=== PATIENT | female | born 1950 | race Hispanic/Latino ===

== ENCOUNTER → 2018-12-31 | Outpatient (CLI) | payer MEDICARE, OTHER ==
[~2018-12-31] MED LIST: IOPAMIDOL 370 MG/ML 200 ML INFUS..BTL INJ ONE; SODIUM CHLORIDE 0.9% 100 ML 100 ML ONE
[2018-12-31 09:15] LABS: CREATININE, SERUM 5.98 mg/dL (0.57-1.11)
--- NOTE | 2018-12-31 10:30 | Diagnostic Imaging Report ---
ABDOMEN AND PELVIS CT WITH CTA RUNOFF PROTOCOL AFTER ADMINISTRATION OF IV CONTRAST. 3D post-processing of the images was performed, and the post-processed images were used in interpretation. COMPARISON: None. IV CONTRAST: 100mL of Isovue 370 ORAL CONTRAST: None RADIATION DOSE: Total DLP: 950 mGy*cm Dose modulation, iterative reconstruction, and/or weight based adjustment of the mA/kV was utilized to reduce the radiation dose to as low as reasonably achievable. FINDINGS: VESSELS: There are moderate calcified and noncalcified atherosclerotic plaques in the aorta and its major branches. There is no evidence of a flap within the aorta to suggest a dissection. The celiac artery, superior mesenteric artery, and inferior mesenteric artery are patent with mild ostial atherosclerotic plaque without hemodynamically significant stenosis. There is a single right renal artery and a single left renal artery, both of which are patent. Right lower extremity: Mild atherosclerotic calcifications of the right common iliac artery and no significant atherosclerotic calcifications of the external iliac artery, both of which are widely patent. Moderate atherosclerotic calcifications involve the common femoral artery with associated moderate luminal narrowing. Diffuse atherosclerotic calcifications involving the superficial femoral artery with multifocal mild to moderate narrowing. Wide patency of the proximal segments of the popliteal artery. Atherosclerotic plaque and mild narrowing of the distal popliteal artery. Patent three-vessel runoff to the level of the midcalf, after which the posterior tibial artery is not well opacified. Patent anterior tibial and peroneal runoff to the level of the ankle. Left lower extremity: Widely patent external iliac artery. Mild atherosclerotic calcifications involving the common femoral, superficial femoral, and popliteal arteries which remain widely patent. Three-vessel runoff to the distal calf, after which the posterior tibial artery is not well opacified. Anterior tibial and peroneal arterial runoff to the ankle. NON-VASCULAR: LOWER THORAX: Mild lingular subsegmental atelectasis. No focal consolidation. Atherosclerotic calcifications of the coronary arteries. HEPATOBILIARY: No focal hepatic lesions. No biliary ductal dilatation. The gallbladder appears unremarkable. SPLEEN: No splenomegaly. PANCREAS: No focal masses or ductal dilatation. ADRENALS: Nodular thickening and internal calcifications involving both adrenal glands. KIDNEYS/URETERS: Left simple renal cyst. No hydronephrosis or renal calculi. PELVIC ORGANS/BLADDER: Status post hysterectomy. PERITONEUM / RETROPERITONEUM: No free air or fluid. LYMPH NODES: No lymphadenopathy. GI TRACT: No abnormal bowel wall thickening. No bowel obstruction. BONES AND SOFT TISSUES: No acute osseous injury. Multiple old healed pelvic fractures. Postsurgical changes of open reduction internal fixation of the right acetabulum and fixation of the right sacroiliac joint. No suspicious lytic or blastic lesions. Degenerative changes of the visualized spine with grade 1 anterolisthesis at L4-5. IMPRESSION: On the right, moderate narrowing of the common femoral artery, superficial femoral artery and distal popliteal artery as above. Patent three vessel runoff to the mid calf and patent anterior tibial and peroneal runoff to the ankle. On the left, mild athetotic calcifications with no hemodynamically significant stenosis of the iliac, common femoral, superficial femoral, or popliteal arteries. Three-vessel runoff to the distal calf. Anterior tibial and peroneal runoff to the ankle. Moderate atherosclerotic calcifications of the abdominal aorta and major branches as well as of the coronary arteries. Signed by: Rosendo Ortez MD on 12/31/2018 10:27 AM
== END ==
LOC: CT 08:36
PROVIDERS: ATTEND Internal Medicine Cardiovascular Disease
DX: I74.4 Embolism and thrombosis of arteries of extremities, unspecified (principal)
CPT/HCPCS: 36415; 75635; 82565; 84520; Q9967

== ENCOUNTER → 2019-02-04 | Day surgery (SDC) | payer OTHER ==
[2019-02-01 14:39] LABS: BASOPHILS % 0.5 % (0.0-1.0); EOSINOPHILS # (AUTO) 0.2 (0.0-0.4); EOSINOPHILS % 2.1 % (0.0-6.0); HEMATOCRIT 38.2 % (34.2-44.1); HEMOGLOBIN 12.5 g/dL (12.0-16.0); LYMPHOCYTES # (AUTO) 2.4 (1.0-3.2); LYMPHOCYTES % 29.6 % (18.0-39.1); MEAN CORPUSCULAR HEMOGLOBIN 31.9 pg (28-32); MEAN CORPUSCULAR HGB CONC 32.7 g/dL (31-35); MEAN CORPUSCULAR VOLUME 97.4 fL (81-99); MONOCYTES # (AUTO) 0.5 (0.2-0.8); MONOCYTES % 5.6 % (4.4-11.3); NEUTROPHILS % 61.9 % (38.7-80.0); PLATELET COUNT 143 x10e3/uL (140-360); RED BLOOD COUNT 3.92 x10e6/uL (3.6-5.1); RED CELL DISTRIBUTION WIDTH 13.3 % (11.7-14.4)
[~2019-02-04] MED LIST changes: +CARVEDILOL3.125 MG PO; -IOPAMIDOL 370 MG/ML 200 ML INFUS..BTL INJ ONE; +LEVOTHYROXINE75 MCG PO; +LIDOCAINE HCL 2% LOCAL INJ 5 ML SDV VIAL INJ ONE; +NIFEDIPINE ER60 MG PO; +PROPOFOL IV EMULSION 10 MG/ML 50 ML VIAL ONE; +RENAGEL800 MG PO; -SODIUM CHLORIDE 0.9% 100 ML 100 ML ONE; +SODIUM CHLORIDE 0.9% 500ML 500 ML ONE; +TRESIBA FL200 UNIT/1 SQ
--- OUTSIDE RECORDS SUMMARY | 2019-02-04 06:23 | XMS REPORT ---
Author Author [facility] Address Unknown Phone Unavailable Care Team Providers Care Log Sorting Supervisor Name Role Phone JIMMY LAW Unavailable Unavailable Luther LANGFORD Unavailable Unavailable Problems This patient has no known problems. Allergies, Adverse Reactions, Alerts This patient has no known allergies or adverse reactions. Medications This patient has no known medications. Results Test Description Test Time Test Comments Text Results Atomic Results Result Comments CTA ABD/PEL/RUN OFF 2018-12-31 10:07:00 [facility] [address] [address] Patient Name: ESTRELLITA FRANKLIN MR #: [id number] : 1950 Age/Sex: 68/F Req #: [id number] Adm Physician: Ordered by: JIMMY LAW JR, DO Report #: [id number] Location: CT Room/Bed: Procedure: [id number] CT/CTA ABD/PEL/RUN OFF Exam Date: 12/31/18 Exam Time: 09 REPORT STATUS: Signed ABDOMEN AND PELVIS CT WITH CTA RUNOFF PROTOCOL AFTER ADMINISTRATION OF IV CONTRAST. 3D post-processing of the images was performed, and the post-processed images were used in interpretation. COMPARISON: None. IV CONTRAST: 100mL of Isovue 370 ORAL CONTRAST: None RADIATION DOSE: Total DLP: 950 mGy*cm Dose modulation, iterative reconstruction, and/or weight based adjustment of the mA/kV was utilized to reduce the radiation dose to as low as reasonably achievable. FINDINGS: VESSELS: There are moderate calcified and noncalcified atherosclerotic plaques in the aorta and its major branches. There is no evidence of a flap within the aorta to suggest a dissection. The celiac artery, superior mesenteric artery, and inferior mesenteric artery are patent with mild ostial atherosclerotic plaque without hemodynamically significant stenosis. There is a single right renal artery and a single left renal artery, both of which are patent. Right lower extremity: Mild atherosclerotic calcifications of the right common iliac artery and no significant atherosclerotic calcifications of the external iliac artery, both of which are widely patent. Moderate atherosclerotic calcifications involve the common femoral artery with associated moderate luminal narrowing. Diffuse atherosclerotic calcifications involving the superficial femoral artery with multifocal mild to moderate narrowing. Wide patency of the proximal segments of the popliteal artery. Atherosclerotic plaque and mild narrowing of the distal popliteal artery. Patent three-vessel runoff to the level of the midcalf, after which the posterior tibial artery is not well opacified. Patent anterior tibial and peroneal runoff to the level of the ankle. Left lower extremity: Widely patent external iliac artery. Mild atherosclerotic calcifications involving the common femoral, superficial femoral, and popliteal arteries which remain widely patent. Three-vessel runoff to the distal calf, after which the posterior tibial artery is not well opacified. Anterior tibial and peroneal arterial runoff to the ankle. NON-VASCULAR: LOWER THORAX: Mild lingular subsegmental atelectasis. No focal consolidation. Atherosclerotic calcifications of the coronary arteries. HEPATOBILIARY: No focal hepatic lesions. No biliary ductal dilatation. The gallbladder appears unremarkable. SPLEEN: No splenomegaly. PANCREAS: No focal masses or ductal dilatation. ADRENALS: Nodular thickening and internal calcifications involving both adrenal glands. KIDNEYS/URETERS: Left simple renal cyst. No hydronephrosis or renal calculi. PELVIC ORGANS/BLADDER: Status post hysterectomy. PERITONEUM / RETROPERITONEUM: No free air or fluid. LYMPH NODES: No lymphadenopathy. GI TRACT: No abnormal bowel wall thickening. No bowel obstruction. BONES AND SOFT TISSUES: No acute osseous injury. Multiple old healed pelvic fractures. Postsurgical changes of open reduction internal fixation of the right acetabulum and fixation of the right sacroiliac joint. No suspicious lytic or blastic lesions. Degenerative changes of the visualized spine with grade 1 anterolisthesis at L4-5. IMPRESSION: On the right, moderate narrowing of the common femoral artery, superficial femoral artery and distal popliteal artery as above. Patent three vessel runoff to the mid calf and patent anterior tibial and peroneal runoff to the ankle. On the left, mild athetotic calcifications with no hemodynamically significant stenosis of the iliac, common femoral, superficial femoral, or popliteal arteries. Three-vessel runoff to the distal calf. Anterior tibial and peroneal runoff to the ankle. Moderate atherosclerotic calcifications of the abdominal aorta and major branches as well as of the coronary arteries. Signed by: Shahbaz Comer MD on 12/31/2018 10:27 AM Dictated By: SHAHBAZ COMER MD 1027 Transcribed By: FRANCES TURK on 12/31/18 1027 COPY TO: JIMMY LAW JR, DO U/S, ABDOMINAL, COMPLETE 2018-11-25 13:25:00 Reason for Exam:->esrd/kidney transplant evaluation FINAL REPORT TECHNIQUE: Grayscale ultrasound of the abdomen. INDICATION: 68-year-old woman with end-stage renal disease for renal transplant evaluation. COMPARISON: None. FINDINGS: MIDLINE VASCULATURE: The visualized inferior vena cava is patent. Portal vein is patent. The maximum visualized aortic diameter is 1.7 cm. LIVER: The liver is normal in size and echogenicity with smooth contour. No focal lesions. BILIARY:Gallbladder: Cholelithiasis. No gallbladder wall thickening or pericholecystic fluid. The gallbladder is distended and measures 4.5 cm in transverse diameter. Negative sonographic Tran sign.Common bile duct is mildly prominent and measures 0.9 cm in diameter. No intrahepatic biliary ductal dilatation. PANCREAS: Visualized portions of the pancreas are unremarkable. SPLEEN: No splenomegaly. PERITONEUM: No free fluid. KIDNEYS: The right kidney measures 9.6 x 4.5 x 4.5 cm with cortical thickness of 1.4 cm. The left kidney measures 9 x 4.7 x 4.3 cm with cortical thickness of 1.2 cm. No hydronephrosis. No sonographically evident solid mass lesion. Simple left renal cyst measures 2.3 x 1.9 x 2.4 cm in the upper pole. IMPRESSION:Cholelithiasis without specific evidence of acute cholecystitis. Mildly prominent common bile duct. This finding may be correlated with liver function tests to assess for cholestasis and the need for further imaging with MRCP or ERCP. Simple left renal cyst. Signed: Mitch Darden MDReport Verified Date/Time: 11/25/2018 13:25:13 Reading Location: [address] Radiology Reading Room , CHEST, 2 VIEWS 2018-11-25 11:29:00 Reason for Exam:->esrd/kidney transplant evaluation FINAL REPORT RAD, CHEST, 2 VIEWS CLINICAL INDICATION: esrd/kidney transplant evaluation COMPARISON: None TECHNIQUE: Frontal and lateral views of the chest FINDINGS: The lungs are clear. No pleural effusion or pneumothorax. Cardiomediastinal silhouette, alcides, and pulmonary vasculature are normal. No acute osseous abnormality. IMPRESSION:No acute cardiopulmonary abnormality. Signed: Radha Peña Verified Date/Time: 11/25/2018 11:29:16 Reading Location: [facility] Radiology Reading Room E CULTURE 2018-08-28 07:52:00 CULTURE (BEAKER) (test jzmt=1108) KLEBSIELLA PNEUMONIAE >100,000 col/mL Klebsiella pneumoniae Amikacin (test code=1) Ampicillin + Sulbactam (test code=6) Aztreonam (test code=32) Cefepime (test code=51) Cefoxitin (test code=68) Ceftazidime (test code=27) Ceftriaxone (test code=52) Ertapenem (test code=38) Gentamicin (test code=18) Levofloxacin (test code=22) Meropenem (test code=34) Nitrofurantoin (test code=23) Piperacillin + Tazobactam (test code=29) Tetracycline (test code=2) Tobramycin (test code=25) Trimethoprim + Sulfamethoxazole (test code=47) [id number] 10:44:00* Test Item Value Reference Range Comments RPR SCREEN (BEAKER) (test zdhj=922) Nonreactive Nonreactive CYTOMEGALOVIRUS ANTIBODY, [id number] 14:41:00* Test Item Value Reference Range Comments CYTOMEGALOVIRUS, IGG (BEAKER) (test kqlu=5035) Positive Negative, Equivocal CMV IgG Result Interpretation: </=0.8 Al Negative 0.9-1.0 Al Equivocal >/=1.1 Al PositiveCYTOMEGALOVIRUS ANTIBODY, [id number] 14:41:00* Test Item Value Reference Range Comments CYTOMEGALOVIRUS IGM ANTIBODY (BEAKER) (test fmsf=5254) Negative Negative, Equivocal CMV IgM Result Interpretation: </=0.8 Al Negative 0.9-1.0 Al Equivocal > /=1.1 Al PositiveEBV ANTIBODY, [id number] 14:41:00* Test Item Value Reference Range Comments JANELLE CALVILLO VIRAL CAPSID ANTIGEN IGG (Tachyon NetworksAKER) (test ycvx=5439) Positive Negative, Equivocal Janelle Calvillo Viral Capsid Antigen IgG Result Interpretation: </=0.8 Al Negative 0.9-1.0 Al Equivocal >/=1.1 Al PositiveEBV ANTIBODY, [id number] 14:41:00* Test Item Value Reference Range Comments JANELLE CALVILLO VIRAL CAPSID ANTIGEN IGM ([employer]) (test qipm=7644) Negative Negative, Equivocal Janelle Calvillo Viral Capsid Antigen IgM Result Interpretation: </=0.8 Al Negative 0.9-1.0 Al Equivocal >/=1.1 Al PositiveVARICELLA ZOSTER ANTIBODY, [id number] 14:41:00* Test Item Value Reference Range Comments VARICELLA ZOSTER IGG (AL) (Tachyon NetworksAKER) (test txvk=6215) 0.9 VARICELLA ZOSTER RESULT INTERPRETATIONS: <=0.8 Al Nonreactive: Presumed non-immune to VZV 0.9-1.0 Al Equivocal >=1.1 Al Reactive: Presumed immune to VZVHEMOGLOBIN [id number] 14:37:00* Test Item Value Reference Range Comments HEMOGLOBIN A1C (BEAKER) (test tjjy=907) 6.4 % 4.3-6.1 HEPATITIS B SURFACE [id number] 13:30:00* Test Item Value Reference Range Comments HEPATITIS B SURFACE ANTIGEN (2) (BEAKER) (test wtkc=2492) Nonreactive Nonreactive HEPATITIS B SURFACE [id number] 13:30:00* Test Item Value Reference Range Comments HEPATITIS B SURFACE ANTIBODY (BEAKER) (test ojmb=287) 28.3 mIU/mL <8.0 HEPATITIS B CORE ANTIBODY, [id number] 13:30:00* Test Item Value Reference Range Comments HEPATITIS B CORE IGM ANTIBODY (BEAKER) (test lolp=294) Nonreactive Nonreactive HEPATITIS C [id number] 13:30:00* Test Item Value Reference Range Comments HEPATITIS C ANTIBODY (BEAKER) (test olsv=227) Nonreactive Nonreactive HIV-1 ANTIGEN WITH HIV-1/2 [id number] 13:30:00* Test Item Value Reference Range Comments HIV-1 ANTIGEN WITH HIV 1\T\2 ANTIBODY (2) (BEAKER) (test itdr=9681) Nonreactive Nonreactive COMPREHENSIVE METABOLIC [id number] 13:16:00* Test Item Value Reference Range Comments TOTAL PROTEIN (BEAKER) (test jpoc=634) 7.7 gm/dL 6.0-8.3 ALBUMIN (BEAKER) (test jyzm=7773) 4.2 g/dL 3.5-5.0 ALKALINE PHOSPHATASE (BEAKER) (test iegt=990) 119 U/L 40-150 BILIRUBIN TOTAL (BEAKER) (test rjzv=458) 0.5 mg/dL 0.2-1.2 SODIUM (BEAKER) (test hgdi=854) 138 meq/L 136-145 POTASSIUM (BEAKER) (test qfwe=463) 5.7 meq/L 3.5-5.1 CHLORIDE (BEAKER) (test kmjq=158) 103 meq/L 98-107 CO2 (BEAKER) (test tlkk=064) 25 meq/L 22-29 BLOOD UREA NITROGEN (BEAKER) (test vvoa=006) 58 mg/dL 7-21 CREATININE (BEAKER) (test qvaw=835) 6.91 mg/dL 0.57-1.25 GLUCOSE RANDOM (BEAKER) (test vuxe=404) 85 mg/dL 70-105 CALCIUM (BEAKER) (test okph=289) 8.5 mg/dL 8.4-10.2 AST (SGOT) (BEAKER) (test bnwg=082) 15 U/L 5-34 ALT (SGPT) (BEAKER) (test dzds=472) 13 U/L 6-55 EGFR (BEAKER) (test kzjh=3769) 6 mL/min/1.73 sq m ESTIMATED GFR IS NOT ACCURATE CREATININE CLEARANCE IN PREDICTING GLOMERULAR FILTRATION RATE. ESTIMATED GFR IS NOT APPLICABLE FOR DIALYSIS PATIENTS. URIC [id number] 13:13:00* Test Item Value Reference Range Comments URIC ACID (BEAKER) (test tfcn=527) 3.5 mg/dL 2.6-7.2 [id number] 13:13:00* Test Item Value Reference Range Comments PHOSPHORUS (BEAKER) (test nlyl=576) 5.1 mg/dL 2.3-4.7 LIPID [id number] 13:13:00* Test Item Value Reference Range Comments TRIGLYCERIDES (BEAKER) (test inzq=570) 93 mg/dL CHOLESTEROL (BEAKER) (test pvir=549) 120 mg/dL HDL CHOLESTEROL (BEAKER) (test vdqu=964) 48 mg/dL LDL CHOLESTEROL CALCULATED (BEAKER) (test aysn=341) 53 mg/dL Triglyceride Reference Range: Low Risk <150 Borderline 150-199 High Risk 200-499 Very High Risk >=500Cholesterol Reference Range: Low Risk <200 Borderline 200-239 High Risk >240HDL Cholesterol Reference Range: Low Risk >=60 High Risk <40LDL Cholesterol Reference Range: Optimal <100 Near Optimal 100-129 Borderline 130-159 High 160-189 Very High >=190 GAMMA GLUTAMYL TRANSFERASE (GGT)2018-08-26 13:13:00* Test Item Value Reference Range Comments GAMMA GLUTAMYL TRANSFERASE (BEAKER) (test voqt=773) 20 U/L 9-64 LACTATE DEHYDROGENASE (LDH)2018-08-26 13:13:00* Test Item Value Reference Range Comments LACTATE DEHYDROGENASE (BEAKER) (test rfzn=267) 237 U/L 125-220 PTH, [id number] 13:06:00* Test Item Value Reference Range Comments PARATHYROID HORMONE INTACT (BEAKER) (test trfn=323) 434.2 pg/mL 8.5-72.5 URINALYSIS W/ [id number] 12:47:00* Test Item Value Reference Range Comments COLOR (BEAKER) (test vlvy=020) Light Yellow CLARITY (BEAKER) (test ysdc=674) Hazy SPECIFIC GRAVITY UA (BEAKER) (test tqfs=022) 1.008 1.001-1.035 PH UA (BEAKER) (test zwbd=551) 8.0 5.0-8.0 PROTEIN UA (BEAKER) (test tndx=233) 100 mg/dL Negative GLUCOSE UA (BEAKER) (test szgb=980) Negative Negative KETONES UA (BEAKER) (test uqyk=809) Negative Negative BILIRUBIN UA (BEAKER) (test aloz=158) Negative Negative BLOOD UA (BEAKER) (test oluk=189) Small Negative NITRITE UA (BEAKER) (test tcbg=940) Negative Negative LEUKOCYTE ESTERASE UA (BEAKER) (test ugwe=342) Large Negative UROBILINOGEN UA (BEAKER) (test djfe=883) 0.2 mg/dL 0.2-1.0 RBC UA (BEAKER) (test bwzm=583) 3 /HPF WBC UA (BEAKER) (test qqjb=897) 124 /HPF BACTERIA (BEAKER) (test kihc=515) Occasional SQUAMOUS EPITHELIAL (BEAKER) (test afsi=229) 1 /HPF HYALINE CASTS (BEAKER) (test hglz=122) 5 /LPF SOURCE(BEAKER) (test lvbp=0834) PROTHROMBIN TIME/[id number] 12:45:00* Test Item Value Reference Range Comments PROTIME (BEAKER) (test nxam=222) 13.9 seconds 11.7-14.7 INR (BEAKER) (test qxjh=560) 1.1 <=5.9 RECOMMENDED COUMADIN/WARFARIN INR THERAPY RANGESSTANDARD DOSE: 2.0 - 3.0 Inclu cody: PROPHYLAXIS for venous thrombosis, systemic embolization; TREATMENT for sunny ous thrombosis and/or pulmonary embolus.HIGH RISK: Target INR is 2.5-3.5 for pat ients with mechanical heart valves.PT/[id number] 12:45:00* Test Item Value Reference Range Comments PROTIME (BEAKER) (test ouci=209) 13.9 seconds 11.7-14.7 INR (BEAKER) (test wwnb=639) 1.1 <=5.9 PARTIAL THROMBOPLASTIN TIME (BEAKER) (test xokq=526) 37.1 seconds 22.5-36.0 RECOMMENDED COUMADIN/WARFARIN INR THERAPY RANGESSTANDARD DOSE: 2.0 - 3.0 Inclu cody: PROPHYLAXIS for venous thrombosis, systemic embolization; TREATMENT for sunny ous thrombosis and/or pulmonary embolus.HIGH RISK: Target INR is 2.5-3.5 for pat ients with mechanical heart valves.CBC W/PLT COUNT & AUTO [id number] 12:38:00* Test Item Value Reference Range Comments WHITE BLOOD CELL COUNT (BEAKER) (test dpyx=639) 8.6 K/ L 3.5-10.5 RED BLOOD CELL COUNT (BEAKER) (test vwno=728) 3.73 M/ L 3.93-5.22 HEMOGLOBIN (BEAKER) (test amxg=140) 11.8 GM/DL 11.2-15.7 HEMATOCRIT (BEAKER) (test skkm=052) 37.3 % 34.1-44.9 MEAN CORPUSCULAR VOLUME (BEAKER) (test raxm=424) 100.0 fL 79.4-94.8 MEAN CORPUSCULAR HEMOGLOBIN (BEAKER) (test bakt=100) 31.6 pg 25.6-32.2 MEAN CORPUSCULAR HEMOGLOBIN CONC (BEAKER) (test xlqy=604) 31.6 GM/DL 32.2-35.5 RED CELL DISTRIBUTION WIDTH (BEAKER) (test ruav=043) 13.9 % 11.7-14.4 PLATELET COUNT (BEAKER) (test oopd=679) 130 K/CU MM 150-450 MEAN PLATELET VOLUME (BEAKER) (test ghcv=410) 10.2 fL 9.4-12.3 NUCLEATED RED BLOOD CELLS (BEAKER) (test gvve=996) 0 /100 WBC 0-0 NEUTROPHILS RELATIVE PERCENT (BEAKER) (test fypb=060) 62 % LYMPHOCYTES RELATIVE PERCENT (BEAKER) (test weze=246) 29 % MONOCYTES RELATIVE PERCENT (BEAKER) (test rfcx=992) 6 % EOSINOPHILS RELATIVE PERCENT (BEAKER) (test vhfu=351) 3 % BASOPHILS RELATIVE PERCENT (BEAKER) (test snds=648) 1 % NEUTROPHILS ABSOLUTE COUNT (BEAKER) (test bgso=717) 5.33 K/ L 1.56-6.13 LYMPHOCYTES ABSOLUTE COUNT (BEAKER) (test hmir=363) 2.49 K/ L 1.18-3.74 MONOCYTES ABSOLUTE COUNT (BEAKER) (test ldlq=931) 0.50 K/ L 0.24-0.36 EOSINOPHILS ABSOLUTE COUNT (BEAKER) (test dohm=483) 0.23 K/ L 0.04-0.36 BASOPHILS ABSOLUTE COUNT (BEAKER) (test zkvh=542) 0.04 K/ L 0.01-0.08 IMMATURE GRANULOCYTES-RELATIVE PERCENT (MARA) (test zakb=1491) 0 % 0-1
[2019-02-04 08:48] VITALS: BP 106/51
== END | disposition home or self-care (01) ==
LOC: OR 06:14
PROVIDERS: ATTEND Internal Medicine Gastroenterology
DX: Z12.11 Encounter for screening for malignant neoplasm of colon (principal); D12.3 Benign neoplasm of transverse colon; K64.8 Other hemorrhoids; Z71.3 Dietary counseling and surveillance; E66.9 Obesity, unspecified; E11.22 Type 2 diabetes mellitus with diabetic chronic kidney disease; I13.2 Hypertensive heart and chronic kidney disease with heart failure and with stage 5 chronic kidney disease, or end stage renal disease; I50.9 Heart failure, unspecified; N18.6 End stage renal disease; Z01.812 Encounter for preprocedural laboratory examination; Z79.4 Long term (current) use of insulin; Z68.31 Body mass index [BMI] 31.0-31.9, adult
CPT/HCPCS: 36415 ×2; 45385; 82948; 84132; 85025; 88305; J2001; J2704; J7040; 45378

== ENCOUNTER → 2020-08-20 | Emergency (ER) | payer MEDICARE, OTHER ==
[~2020-08-20] VITALS: Ht 152.4 cm; Wt 88.0 kg
[~2020-08-20] MED LIST changes: -LIDOCAINE HCL 2% LOCAL INJ 5 ML SDV VIAL INJ ONE; -PROPOFOL IV EMULSION 10 MG/ML 50 ML VIAL ONE; -SODIUM CHLORIDE 0.9% 500ML 500 ML ONE
[2020-08-20 17:29] VITALS: BP 120/62
== END | disposition home or self-care (01) ==
LOC: ER 16:26
DX: L03.012 Cellulitis of left finger (principal); I12.0 Hypertensive chronic kidney disease with stage 5 chronic kidney disease or end stage renal disease; E11.22 Type 2 diabetes mellitus with diabetic chronic kidney disease; N18.6 End stage renal disease; Z99.2 Dependence on renal dialysis
CPT/HCPCS: 99283

== ENCOUNTER 2020-09-01 14:21 | Inpatient (IN) | payer MEDICARE ==
[~2020-09-01] VITALS: Ht 152.4 cm; Wt 87.5 kg
[2020-09-01] MEDS ORDERED: MORPHINE SULFATE INJ 2 MG/ML SYR IV PRN (15:15)
[2020-09-01] MEDS ORDERED: VANCOMYCIN 1GM/NS 250 ML 250 ML IV ONE (15:30)
[2020-09-01] MEDS ORDERED: CEFEPIME HCL 1 GM VIAL IV SCH (15:30)
[2020-09-01 15:39] LABS: BASOPHILS # (AUTO) 0.1 (0.0-0.1); BASOPHILS % 0.6 % (0.0-1.0); EOSINOPHILS # (AUTO) 0.2 (0.0-0.4); EOSINOPHILS % 1.9 % (0.0-6.0); HEMATOCRIT 38.2 % (34.2-44.1); HEMOGLOBIN 12.4 g/dL (12.0-16.0); LYMPHOCYTES # (AUTO) 2.3 (1.0-3.2); LYMPHOCYTES % 25.6 % (18.0-39.1); MEAN CORPUSCULAR HEMOGLOBIN 32.2 pg (28-32); MEAN CORPUSCULAR HGB CONC 32.5 g/dL (31-35); MEAN CORPUSCULAR VOLUME 99.2 fL (81-99); MONOCYTES # (AUTO) 0.5 (0.2-0.8); MONOCYTES % 6.2 % (4.4-11.3); NEUTROPHILS # (AUTO) 5.7 (2.1-6.9); PLATELET COUNT 157 x10e3/uL (140-360); RED BLOOD COUNT 3.85 x10e6/uL (3.6-5.1); RED CELL DISTRIBUTION WIDTH 14.6 % (11.7-14.4)
[2020-09-01 15:50] LABS: ALBUMIN 3.6 g/dL (3.5-5.0); ALBUMIN/GLOBULIN RATIO 0.9 (0.8-2.0); ANION GAP 16.7 mmol/L (8-16); CALCIUM 9.5 mg/dL (8.4-10.2); CREATININE, SERUM 4.57 mg/dL (0.57-1.11); POTASSIUM 4.7 mmol/L (3.5-5.1)
[2020-09-01] MEDS: CEFEPIME HCL 1GM 1 GM in SODIUM CHLORIDE 0.9% 50ML 50 ML IV SCH (17:25)
[2020-09-01 20:38] VITALS: BP 143/63
[2020-09-01 21:00] VITALS: BP 143/62
[2020-09-01] MEDS: SODIUM CHLORIDE 0.9% 1000ML 1,000 ML IV SCH ×2 (23:12→23:15)
[2020-09-01] MEDS: ONDANSETRON HCL INJ 2MG/ML 2ML 2 MG/ML VIAL IV PRN (23:16)
[2020-09-01] MEDS: MORPHINE SULFATE INJ 4 MG/ML INJ 1ML IV PRN (23:16)
[2020-09-02] VITALS (8 sets, daily range): BP systolic 107–146; BP diastolic 44–64
[2020-09-02] MEDS ORDERED: HYDRALAZINE HCL 20 MG/ML VIAL IV PRN (03:45)
[2020-09-02] MEDS ORDERED: KETOROLAC TROMETHAMINE 30 MG/ML VIAL IV PRN (03:45)
[2020-09-02] MEDS ORDERED: ACETAMINOPHEN 325 MG TAB PO PRN (03:45)
[2020-09-02] MEDS ORDERED: DEXTROSE 50% SYRINGE 50 ML IV PRN (03:45)
[2020-09-02] MEDS: CEFEPIME HCL 1GM 1 GM in SODIUM CHLORIDE 0.9% 50ML 50 ML IV SCH ×2 (04:52→16:14)
[2020-09-02] MEDS: MORPHINE SULFATE INJ 4 MG/ML INJ 1ML IV PRN ×2 (05:12→16:54)
[2020-09-02 06:27] LABS: BASOPHILS # (AUTO) 0.1 (0.0-0.1); BASOPHILS % 0.6 % (0.0-1.0); EOSINOPHILS # (AUTO) 0.2 (0.0-0.4); HEMATOCRIT 36.4 % (34.2-44.1); HEMOGLOBIN 11.5 g/dL (12.0-16.0); LYMPHOCYTES # (AUTO) 2.9 (1.0-3.2); LYMPHOCYTES % 36.5 % (18.0-39.1); MEAN CORPUSCULAR HEMOGLOBIN 32.2 pg (28-32); MEAN CORPUSCULAR HGB CONC 31.6 g/dL (31-35); MONOCYTES # (AUTO) 0.5 (0.2-0.8); MONOCYTES % 6.7 % (4.4-11.3); NEUTROPHILS # (AUTO) 4.1 (2.1-6.9); NEUTROPHILS % 52.4 % (38.7-80.0); PLATELET COUNT 129 x10e3/uL (140-360); RED BLOOD COUNT 3.57 x10e6/uL (3.6-5.1); RED CELL DISTRIBUTION WIDTH 14.6 % (11.7-14.4)
[2020-09-02 06:51] LABS: ANION GAP 16.6 mmol/L (8-16); CALCIUM 8.3 mg/dL (8.4-10.2); CREATININE, SERUM 5.56 mg/dL (0.57-1.11); POTASSIUM 4.6 mmol/L (3.5-5.1)
[2020-09-02] MEDS: INSULIN REGULAR, HUMAN 100 UNIT/1 ML 3ML VIAL SQ SCH ×4 (07:30→22:19)
[2020-09-02] MEDS: LEVOTHYROXINE SODIUM 75 MCG TAB PO SCH (08:33)
[2020-09-02] MEDS: CARVEDILOL 3.125 MG TAB PO SCH ×2 (08:33→16:15)
[2020-09-02] MEDS: SEVELAMER CARBONATE 800 MG TAB PO SCH ×3 (08:34→16:15)
[2020-09-02] MEDS: NIFEDIPINE CR 30 MG TAB PO SCH (08:34)
[2020-09-02] MEDS: EPSOM SALT 454 GM POWD TOP SCH ×5 (10:30→21:57)
[2020-09-02] MEDS ORDERED: VANCOMYCIN 1GM/NS 250 ML 250 ML IV SCH (13:00)
[2020-09-02] MEDS: ONDANSETRON HCL INJ 2MG/ML 2ML 2 MG/ML VIAL IV PRN (16:54)
[2020-09-03] VITALS (8 sets, daily range): BP systolic 100–129; BP diastolic 29–75
[2020-09-03] MEDS: EPSOM SALT 454 GM POWD TOP SCH ×8 (03:00→21:00)
[2020-09-03] MEDS: CEFEPIME HCL 1GM 1 GM in SODIUM CHLORIDE 0.9% 50ML 50 ML IV SCH (05:21)
[2020-09-03] MEDS: ONDANSETRON HCL INJ 2MG/ML 2ML 2 MG/ML VIAL IV PRN (05:43)
[2020-09-03] MEDS: MORPHINE SULFATE INJ 4 MG/ML INJ 1ML IV PRN (05:43)
[2020-09-03] MEDS: INSULIN REGULAR, HUMAN 100 UNIT/1 ML 3ML VIAL SQ SCH ×4 (07:30→21:00)
[2020-09-03] MEDS: LEVOTHYROXINE SODIUM 75 MCG TAB PO SCH (08:45)
[2020-09-03] MEDS: NIFEDIPINE CR 30 MG TAB PO SCH (08:46)
[2020-09-03] MEDS: CARVEDILOL 3.125 MG TAB PO SCH ×2 (08:46→17:40)
[2020-09-03] MEDS: SEVELAMER CARBONATE 800 MG TAB PO SCH ×3 (08:46→17:40)
[2020-09-04] VITALS (8 sets, daily range): BP systolic 97–127; BP diastolic 45–74
[2020-09-04] MEDS: EPSOM SALT 454 GM POWD TOP SCH ×9 (03:00→23:59)
[2020-09-04] MEDS: INSULIN REGULAR, HUMAN 100 UNIT/1 ML 3ML VIAL SQ SCH ×4 (07:30→21:00)
[2020-09-04] MEDS: CARVEDILOL 3.125 MG TAB PO SCH ×2 (08:00→16:27)
[2020-09-04] MEDS: MORPHINE SULFATE INJ 4 MG/ML INJ 1ML IV PRN (09:00)
[2020-09-04] MEDS: NIFEDIPINE CR 30 MG TAB PO SCH (09:00)
[2020-09-04] MEDS ORDERED: CEFEPIME HCL 1 GM VIAL IV SCH (09:00)
[2020-09-04] MEDS: SEVELAMER CARBONATE 800 MG TAB PO SCH ×3 (09:01→16:42)
[2020-09-04] MEDS: LEVOTHYROXINE SODIUM 75 MCG TAB PO SCH (09:01)
[2020-09-04] MEDS: CEFEPIME HCL 1GM 1 GM in SODIUM CHLORIDE 0.9% 50ML 50 ML IV SCH (09:01)
[2020-09-04] MEDS ORDERED: SODIUM CHLORIDE 0.9% 1000ML 2,000 ML IV PRN (16:15)
[2020-09-04] MEDS ORDERED: ALBUMIN 25% 12.5GM 0.25 GM/ML BTL IV PRN (16:15)
[2020-09-04 17:31] LABS: ANION GAP 24.4 mmol/L (8-16); CALCIUM 7.7 mg/dL (8.4-10.2); CREATININE, SERUM 10.79 mg/dL (0.57-1.11)
[2020-09-04 17:32] LABS: POTASSIUM 6.4 mmol/L (3.5-5.1)
[2020-09-04] MEDS ORDERED: SODIUM CHLORIDE 0.9% 250ML 250 ML IV PRN (19:15)
[2020-09-05] VITALS (8 sets, daily range): BP systolic 92–139; BP diastolic 45–80
[2020-09-05] MEDS: EPSOM SALT 454 GM POWD TOP SCH ×7 (03:54→21:00)
[2020-09-05] MEDS: INSULIN REGULAR, HUMAN 100 UNIT/1 ML 3ML VIAL SQ SCH ×4 (07:30→21:00)
[2020-09-05] MEDS: LEVOTHYROXINE SODIUM 75 MCG TAB PO SCH (07:30)
[2020-09-05] MEDS: SEVELAMER CARBONATE 800 MG TAB PO SCH ×3 (08:49→16:56)
[2020-09-05] MEDS: CARVEDILOL 3.125 MG TAB PO SCH ×2 (08:49→16:20)
[2020-09-05] MEDS: CEFEPIME HCL 1GM 1 GM in SODIUM CHLORIDE 0.9% 50ML 50 ML IV SCH (08:50)
[2020-09-05] MEDS: NIFEDIPINE CR 30 MG TAB PO SCH (08:51)
[2020-09-06] VITALS (8 sets, daily range): BP systolic 105–141; BP diastolic 51–95
[2020-09-06] MEDS: EPSOM SALT 454 GM POWD TOP SCH ×8 (03:00→21:00)
[2020-09-06 05:54] LABS: ANION GAP 20.1 mmol/L (8-16); CALCIUM 7.4 mg/dL (8.4-10.2); CREATININE, SERUM 8.02 mg/dL (0.57-1.11); POTASSIUM 5.1 mmol/L (3.5-5.1)
[2020-09-06] MEDS: INSULIN REGULAR, HUMAN 100 UNIT/1 ML 3ML VIAL SQ SCH ×4 (07:30→20:20)
[2020-09-06] MEDS: CARVEDILOL 3.125 MG TAB PO SCH ×2 (08:00→16:20)
[2020-09-06] MEDS: SEVELAMER CARBONATE 800 MG TAB PO SCH ×3 (08:47→16:20)
[2020-09-06] MEDS: CEFEPIME HCL 1GM 1 GM in SODIUM CHLORIDE 0.9% 50ML 50 ML IV SCH (08:47)
[2020-09-06] MEDS: LEVOTHYROXINE SODIUM 75 MCG TAB PO SCH (08:47)
[2020-09-06] MEDS: MORPHINE SULFATE INJ 4 MG/ML INJ 1ML IV PRN ×2 (08:49→23:21)
[2020-09-06] MEDS: NIFEDIPINE CR 30 MG TAB PO SCH (08:50)
[2020-09-07 01:36] VITALS: BP 99/44
[2020-09-07] MEDS: EPSOM SALT 454 GM POWD TOP SCH ×6 (02:31→14:43)
[2020-09-07 05:37] VITALS: BP 138/58
[2020-09-07] MEDS: INSULIN REGULAR, HUMAN 100 UNIT/1 ML 3ML VIAL SQ SCH ×2 (07:30→10:57)
[2020-09-07 07:44] VITALS: BP 114/56
[2020-09-07] MEDS: SEVELAMER CARBONATE 800 MG TAB PO SCH ×2 (08:06→12:11)
[2020-09-07] MEDS: LEVOTHYROXINE SODIUM 75 MCG TAB PO SCH (08:06)
[2020-09-07] MEDS: CARVEDILOL 3.125 MG TAB PO SCH (08:06)
[2020-09-07] MEDS: NIFEDIPINE CR 30 MG TAB PO SCH (08:07)
[2020-09-07] MEDS: CEFEPIME HCL 1GM 1 GM in SODIUM CHLORIDE 0.9% 50ML 50 ML IV SCH (08:09)
[2020-09-07] MEDS: MORPHINE SULFATE INJ 4 MG/ML INJ 1ML IV PRN (08:10)
[2020-09-07 08:17] VITALS: BP 114/56
[2020-09-07] MEDS ORDERED: DOXYCYCLINE HY100 MG PO (11:02)
[2020-09-07 11:06] VITALS: BP 95/42
[2020-09-07 11:17] VITALS: BP 104/62
[2020-09-07] MEDS ORDERED: ONDANSETRON HCL 4 MG ORAL DISINTEGRATING TAB PO PRN (13:15)
== END 2020-09-07 15:54 | disposition home or self-care (01) | DRG 602 ==
LOC: ER 15:13 → ERHOLD 16:52 → MED/SURG3 21:36
PROVIDERS: ADMIT Internal Medicine; ATTEND Internal Medicine
PROC: 5A1D70Z Performance of Urinary Filtration, Intermittent, Less than 6 Hours Per Day (ICD-10-PCS; principal; 2020-09-04)
DX: L03.019 Cellulitis of unspecified finger (principal); N18.6 End stage renal disease; I12.0 Hypertensive chronic kidney disease with stage 5 chronic kidney disease or end stage renal disease; E11.9 Type 2 diabetes mellitus without complications; I10 Essential (primary) hypertension; E03.9 Hypothyroidism, unspecified; D64.9 Anemia, unspecified; E11.22 Type 2 diabetes mellitus with diabetic chronic kidney disease; Z99.2 Dependence on renal dialysis; Z79.899 Other long term (current) drug therapy; L08.9 Local infection of the skin and subcutaneous tissue, unspecified; E11.40 Type 2 diabetes mellitus with diabetic neuropathy, unspecified; B35.1 Tinea unguium; E87.5 Hyperkalemia; Z20.822 Contact with and (suspected) exposure to COVID-19
CPT/HCPCS: 36415; 80048; 80053; 82948; 83036; 83605; 84443; 85025; 86704; 86705; 86706; 86707; 87040; 87340; 87350; 90962; 96372; 99284; J0692; J1817; J2270; J2405; J3370; J7030; U0002